=== PATIENT | male | born 1960 | race Caucasian/White ===

== ENCOUNTER 2019-04-15 07:25 | Day surgery (SDC) | payer OTHER ==
[~2019-04-15] VITALS: Ht 177.8 cm; Wt 113.3 kg
[~2019-04-15 07:25] MED LIST: HYDMOR2 PO; PROM25 PO; VITAMINS
--- NOTE | 2019-04-15 08:06 | NUR ---
Ambulatory in Day SurgeryPatient states colon prep results clear. History, Chart, Medications and Allergies reviewed before start of procedure.Lungs clear T/O to Auscultation. Patient confirms NPO status and agrees with scheduled surgery. Patient States Post-Procedure ride home has been arranged.
--- NOTE | 2019-04-15 08:51 | NUR ---
04/15/19 0851 Israel Trevino History, Chart, Medications and Allergies reviewed before start of procedure.MONITOR INTACT WITH CONTINUOUS PULSE OXIMETRY AND INTERMITTENT BP.3-LEAD EKG REVIEWED WITH PHYSICIAN PRIOR TO START OF PROCEDURE.O2 VIA N/C INTACT THROUGHOUT SEDATION/PROCEDURE. Patient confirms NPO status and agrees with scheduled surgery.PATIENT DETERMINED TO BE ASA APPROPRIATE FOR PROPOFOL SEDATION PRIOR TO START OF PROCEDURE BY DR. SALES.
--- NOTE | 2019-04-15 09:43 | NUR ---
Discharge instructions reviewed with patient. Patient verbalizes understanding. Copy given to patient to take home. Patient States Post-Procedure ride home has been arranged. Discharged via wheelchair to private car for ride home.
--- NOTE | 2019-04-15 09:45 | NUR ---
Discharge instructions reviewed with patient. Patient verbalizes understanding. Copy given to patient to take home.
== END 2019-04-15 09:45 | disposition home or self-care (01) ==
LOC: ORSCMMR 07:25 → ORD 08:30 → ORSCMMR 09:45
PROVIDERS: Internal Medicine Gastroenterology
PROC: 0DJD8ZZ Inspection of Lower Intestinal Tract, Via Natural or Artificial Opening Endoscopic (ICD-10-PCS; principal; 2019-04-15 08:30)
DX: Z12.11 Encounter for screening for malignant neoplasm of colon (principal); Z80.0 Family history of malignant neoplasm of digestive organs; K57.30 Diverticulosis of large intestine without perforation or abscess without bleeding; I10 Essential (primary) hypertension
CPT/HCPCS: J2704; J7120

== ENCOUNTER 2019-04-26 21:29 | Emergency (ER) | payer OTHER ==
[~2019-04-26] VITALS: Ht 177.8 cm; Wt 113.4 kg
[2019-04-26] MEDS ORDERED: Oxycodone HCl5 M1 PO (22:43)
== END 2019-04-26 23:05 | disposition home or self-care (01) ==
LOC: ER 21:29
DX: S20.211A Contusion of right front wall of thorax, initial encounter (principal); W10.9XXA Fall (on) (from) unspecified stairs and steps, initial encounter; Z88.1 Allergy status to other antibiotic agents
CPT/HCPCS: 71046; 99283-25; A9270

== ENCOUNTER → 2019-11-18 | Outpatient (CLI) | payer OTHER ==
[~2019-11-18] MED LIST changes: +FUROSEMIDE40 MG PO; +Flomax0.4 MG PO; +KETO10 PO; +Oxycodone HCl5 M1 PO; +Percocet 5-3251 EACH PO; +Potassium Chlo20 ME1 PO
== END | disposition home or self-care (01) ==
LOC: LAB 08:20 → LAB SHORT 08:20 → LAB FUT 09-28 14:30
DX: N20.0 Calculus of kidney (principal)
CPT/HCPCS: 81050

== ENCOUNTER 2020-05-16 07:41 | Day surgery (SDC) | payer OTHER ==
[~2020-05-16] VITALS: Ht 180.3 cm; Wt 112.8 kg
--- NOTE | 2020-05-16 08:54 | NUR ---
05/16/20 0853 Domi Hennessy History, Chart, Medications and Allergies reviewed before start of procedure.Patient confirms NPO status and agrees with scheduled surgery.3-LEAD EKG REVIEWED WITH PHYSICIAN PRIOR TO START OF PROCEDURE.MONITOR INTACT WITH CONTINUOUS PULSE OXIMETRY AND INTERMITTENT BP.PATIENT DETERMINED TO BE ASA APPROPRIATE FOR PROPOFOL SEDATION PRIOR TO START OF PROCEDURE BY
--- NOTE | 2020-05-16 10:15 | NUR ---
Discharge instructions reviewed with patient. Patient verbalizes understanding. Copy given to patient to take home. Discharged via wheelchair to private car for ride home. [facility] CALLED TO SET UP [facility] FOR TOMORROW ON [address]. ORDER FAXED TO [facility]. RX CALLED TO [facility] PER PT REQUEST.
== END 2020-05-16 12:00 | disposition home or self-care (01) ==
LOC: ORSCMMR 07:41 → ORD 08:30 → ORSCMMR 08:30
PROVIDERS: Internal Medicine Gastroenterology
PROC: 0DB98ZX Excision of Duodenum, Via Natural or Artificial Opening Endoscopic, Diagnostic (ICD-10-PCS; principal; 2020-05-16 08:30)
PROC: 0DB78ZX Excision of Stomach, Pylorus, Via Natural or Artificial Opening Endoscopic, Diagnostic (ICD-10-PCS; principal; 2020-05-16 08:30)
PROC: 0DB58ZX Excision of Esophagus, Via Natural or Artificial Opening Endoscopic, Diagnostic (ICD-10-PCS; principal; 2020-05-16 08:30)
PROC: 0DJD8ZZ Inspection of Lower Intestinal Tract, Via Natural or Artificial Opening Endoscopic (ICD-10-PCS; principal; 2020-05-16 08:30)
DX: R19.4 Change in bowel habit (principal); K29.80 Duodenitis without bleeding; K29.70 Gastritis, unspecified, without bleeding; R14.0 Abdominal distension (gaseous); K57.30 Diverticulosis of large intestine without perforation or abscess without bleeding; Z80.0 Family history of malignant neoplasm of digestive organs; G47.33 Obstructive sleep apnea (adult) (pediatric)
CPT/HCPCS: 88305; 88342; J2250; J3010; J7120

== ENCOUNTER 2020-07-01 06:10 | Day surgery (SDC) | payer OTHER ==
[~2020-07-01] VITALS: Ht 180.3 cm; Wt 116.7 kg
[~2020-07-01 06:10] MED LIST changes: +FURO20 PO; +OMEP20ER PO; +POTCHL20ER PO
--- NOTE | 2020-07-01 06:21 | NUR ---
History, Chart, Medications and Allergies reviewed before start of procedure. Patient confirms NPO status and agrees with scheduled surgery. Patient States Post-Procedure ride home has been arranged with his girlfriend, Fabby.
--- NOTE | 2020-07-01 13:06 | NUR ---
DRESSING C/D/I, NO SIGNS OF REDNESS OR SWELLING AROUND SURGICAL SITE
--- NOTE | 2020-07-01 14:01 | NUR ---
PT DISCHARGED TO HOME Discharge instructions reviewed with patient. Patient verbalizes understanding. Copy given to patient to take home. Dressing to procedure site clean, dry, intact with no visible drainage, swelling, erythema or bruising noted. Discharged via wheelchair to private car for ride home.
== END 2020-07-01 14:05 | disposition home or self-care (01) ==
LOC: ORSCMMR 06:10 → ORD 07:30 → ORSCMMR 14:05
PROVIDERS: Surgery
PROC: 0YU54JZ Supplement Right Inguinal Region with Synthetic Substitute, Percutaneous Endoscopic Approach (ICD-10-PCS; principal; 2020-07-01 07:30)
PROC: 8E0W4CZ Robotic Assisted Procedure of Trunk Region, Percutaneous Endoscopic Approach (ICD-10-PCS; principal; 2020-07-01 07:30)
DX: K40.31 Unilateral inguinal hernia, with obstruction, without gangrene, recurrent (principal); K21.9 Gastro-esophageal reflux disease without esophagitis; G47.33 Obstructive sleep apnea (adult) (pediatric); E66.01 Morbid (severe) obesity due to excess calories; Z68.35 Body mass index [BMI] 35.0-35.9, adult; Z79.899 Other long term (current) drug therapy
CPT/HCPCS: 49651; S2900; A9270-GY; C1781; J0690; J1100; J1885; J2250; J2405; J2704; J2710; J2765; J3010; J7120

== ENCOUNTER 2022-05-02 07:17 | Day surgery (SDC) | payer OTHER ==
[~2022-05-02] VITALS: Ht 180.3 cm; Wt 114.6 kg
[2022-05-02] MEDS ORDERED: DEPO-TESTO200 MG/18 IM (07:33)
--- NOTE | 2022-05-02 07:59 | NUR ---
Ambulatory in Day Surgery History, Chart, Medications and Allergies reviewed before start of procedure. Pre-Op teaching done. Pt verbalizes understanding. Patient States Post-Procedure ride home has been arranged.
--- NOTE | 2022-05-02 11:12 | NUR ---
Discharge instructions reviewed with patient. Patient verbalizes understanding. Copy given to patient to take home. Dressing to procedure site clean, dry, intact with no visible drainage, swelling, erythema or bruising noted. Discharged via wheelchair to private car for ride home.
== END 2022-05-02 11:13 | disposition home or self-care (01) ==
LOC: ORSCMMR 07:17 → ORD 08:30 → ORSCMMR 08:30
PROVIDERS: Surgery
PROC: 0WUF0JZ Supplement Abdominal Wall with Synthetic Substitute, Open Approach (ICD-10-PCS; principal; 2022-05-02 08:00)
DX: K43.2 Incisional hernia without obstruction or gangrene (principal); G47.33 Obstructive sleep apnea (adult) (pediatric); Z79.899 Other long term (current) drug therapy
CPT/HCPCS: A9270; C1781; J0690; J1100; J1885; J2250; J2405; J2704; J2795; J3010; J7120

== ENCOUNTER 2023-08-04 19:40 | Emergency (ER) | payer OTHER ==
[~2023-08-04] VITALS: Ht 177.8 cm; Wt 117.9 kg
[~2023-08-04 19:40] MED LIST changes: +DEPO-TESTO200 MG/18 IM
[2023-08-04 19:45] VITALS: BP 183/94
[2023-08-04] MEDS ORDERED: ONDA4 PO (21:18)
[2023-08-04] MEDS ORDERED: HYDR1TAB94 PO (21:18)
[2023-08-04] MEDS ORDERED: DERMACINRX LID1 EACH TOP (21:18)
== END 2023-08-04 21:40 | disposition home or self-care (01) ==
LOC: ER 19:40
DX: M16.11 Unilateral primary osteoarthritis, right hip (principal); Z88.0 Allergy status to penicillin
CPT/HCPCS: 96372; 99282-25; A9270; J1885